=== PATIENT | female | born 1995 | race Caucasian/White ===

== ENCOUNTER 2024-06-26 09:27 | Inpatient (IN) | payer MEDICAID, OTHER ==
[~2024-06-26 09:27] MED LIST: Bupivacaine 0.25% HCL 30 ML VIAL ONE
[2024-06-26] MEDS ORDERED: hydrALAZINE 20 MG/ML VIAL SLOW IVP PRN ×2 (09:50→13:00)
[2024-06-26] MEDS ORDERED: Lidocaine 1% (PF) 30 ML VIAL SC PRN (09:52)
[2024-06-26] MEDS ORDERED: Promethazine HCl 25 MG/ML VIAL IM PRN ×2 (09:52→11:54)
[2024-06-26] MEDS ORDERED: Carboprost 250 MCG/ML AMP IM PRN (09:53)
[2024-06-26] MEDS ORDERED: Misoprostol 200 MCG TAB PR PRN (09:53)
[2024-06-26] MEDS ORDERED: Methylergonovine 0.2 MG/ML VIAL IM PRN ×2 (09:53→13:00)
[2024-06-26] MEDS ORDERED: Docusate 100 MG CAP PO PRN (09:53)
[2024-06-26] MEDS ORDERED: Diphenoxylate HCl/Atropine Tablet PO PRN ×2 (09:53)
[2024-06-26] MEDS ORDERED: Oxytocin 30 units/NS 500 ML 500 ML IV SCH ×4 (10:00→13:00)
[2024-06-26 10:07] LABS: Fetal Membranes Rupture RUPTURE DETECTED (No Rupture)
[2024-06-26 10:19] VITALS: BMI 43.4
[2024-06-26 10:26] LABS: Hematocrit 34.6 % (34.9-44.5); Mean Corpuscular HGB CONC 31.8 g/dL (32.0-36.0); Mean Corpuscular Hemoglobin 26.8 pg (27.0-33.0); Mean Corpuscular Volume 84.4 fL (81.6-98.3); Mean Platelet Volume 10.5 fL (7.4-10.4); Platelet Count 248 10x3/uL (150-450); RBC Distribution Width 13.3 % (11.5-14.5); White Blood Cell (WBC) Count 13.1 10x3/uL (3.5-10.5)
[2024-06-26 10:59] LABS: HBsAg Index 0.22 S/CO (0-0.99); Hep B Surf Ag - L&D Non-Reactive S/CO (NonReactive); Syphilis Antibody Nonreactive (Nonreactive); Syphilis Antibody Index 0.06 S/CO (<1.00 Non-Reactive)
[2024-06-26 11:17] LABS: ALT (SGPT) 20 U/L (8-55); AST (SGOT) 16 U/L (5-34); Albumin 2.7 g/dL (3.5-5.0); Alkaline Phosphatase 159 U/L (40-110); Anion Gap 12 mmol/L (10-20); BUN (Urea Nitrogen) 7 mg/dL (7.0-18.7); Bilirubin, Total 0.3 mg/dL (0.2-1.2); Calc. Creatinine Clearance 263 mL/min (70-130); Calcium 8.6 mg/dL (7.8-10.44); Carbon Dioxide 22 mmol/L (22-29); Chloride 107 mmol/L (98-107); Estimated GFR 126; Glucose 75 mg/dL (70-105); Protein, Total 6.7 g/dL (6.0-8.3); Sodium 137 mmol/L (136-145)
[2024-06-26] MEDS: fentaNYL/Ropivacaine Epidural 100 ML ONE (11:22)
[2024-06-26] MEDS: Ondansetron PF 4 MG/2 ML Vial IVP PRN (11:50)
[2024-06-26] MEDS ORDERED: ePHEDrine Sulfate 50 MG/10 ML VIAL SLOW IVP PRN (11:54)
[2024-06-26] MEDS ORDERED: Lactated Ringer's 500 ML IV PRN (11:54)
[2024-06-26] MEDS ORDERED: Ondansetron PF 4 MG/2 ML Vial IVP PRN ×2 (11:54→13:00)
[2024-06-26] MEDS ORDERED: diphenhydrAMINE 50 MG/ML VIAL IVP PRN (11:54)
[2024-06-26] MEDS ORDERED: Moisturizing Cream (Eucerin) 113 GM JAR TOP PRN (11:54)
[2024-06-26] MEDS ORDERED: Naloxone HCl 0.4 mg/ml Vial IVP PRN ×2 (11:54)
[2024-06-26] MEDS ORDERED: Active EPIDURAL FS SCH (12:00)
[2024-06-26] MEDS ORDERED: fentaNYL 2 mcg/Ropivacaine 0.2% Epidural 100 ML CADD EPIDURAL SCH (12:00)
[2024-06-26] MEDS: Ibuprofen 800 MG TAB PO PRN (12:51)
[2024-06-26 12:56] LABS: Creatinine, Urine 99.89 mg/dL (47-110)
[2024-06-26] MEDS ORDERED: Bisacodyl 10 MG SUPP PR PRN (13:00)
[2024-06-26] MEDS ORDERED: Milk Of Magnesia 30 ML UDCUP PO PRN (13:00)
[2024-06-26] MEDS ORDERED: Misoprostol 200 MCG TAB VAG PRN (13:00)
[2024-06-26] MEDS: Lactated Ringer's 1,000 ML IV SCH (17:43)
[2024-06-26] MEDS: Ferrous Sulfate 325 MG TAB PO SCH (17:44)
[2024-06-26] MEDS: Docusate 100 MG CAP PO SCH (20:34)
[2024-06-26] MEDS: Boostrix 0.5 ML (Tdap) VIAL (>/=7 yrs of age) IM ONE (21:27)
[2024-06-27] MEDS: Ibuprofen 800 MG TAB PO PRN (08:08)
[2024-06-27 11:18] VITALS: BP 114/78; TEMP 97.5
[2024-06-27] MEDS: Acetaminophen 325 MG TAB PO PRN (13:26)
== END 2024-06-27 16:10 | disposition home or self-care (01) | DRG 807 ==
LOC: CSHLD/OP 09:27 → CSHLD 10:19 → CSHPP 15:15
PROVIDERS: ADMIT Obstetrics & Gynecology; ATTEND Obstetrics & Gynecology
PROC: 10E0XZZ Delivery of Products of Conception, External Approach (ICD-10-PCS; principal; 2024-06-26)
PROC: 3E0334Z Introduction of Serum, Toxoid and Vaccine into Peripheral Vein, Percutaneous Approach (ICD-10-PCS; 2024-06-26)
DX: O13.4 Gestational [pregnancy-induced] hypertension without significant proteinuria, complicating childbirth (principal); Z37.0 Single live birth; O99.214 Obesity complicating childbirth; Z3A.38 38 weeks gestation of pregnancy; E66.9 Obesity, unspecified
CPT/HCPCS: 36415; 51702; 80053; 82570; 84112; 84156; 85027; 85461; 86780; 86850; 86900; 86901; 87340; 90384; 96372; 99285; J0665; J2405